=== PATIENT | female | born 1995 | race Caucasian/White ===

== ENCOUNTER 2024-06-09 14:23 | Outpatient (AMB) | payer BC, MEDICAID, SELFPAY ==
[2024-06-09 14:35] VITALS: BP 141/58; PULSE 79; RESP 18; TEMP 36.3; O2SAT 98; BMI 25.7
--- NOTE | 2024-06-09 14:35 | PD.GSCLVISIT ---
Vital Signs - [facility] 06/09/24 14:35 Height 1.68 m Height Method Stated Weight 72.376 kg Weight Measurement Method Standing Scale BMI 25.7 BP 141/58 H Blood Pressure Source Automatic Cuff Blood Pressure Location Left Upper Arm Position Sitting Respiration 18 Pulse 79 Pulse Source Monitor Temp 97.3 F Temp Source Temporal Artery Scan Pulse Oximetry (%) 98 Oxygen Delivery Method Room Air Med/Allergies Allergies & Medications Allergies pumpkin Allergy (Unknown, Verified 06/09/24 14:36) Swelling Medication Reconciliation vits no.124-ferrous fum 27 mg iron-folic acid 800 mcg tablet ( Vitamin) 1 tab PO QDAY 06/15/19 [History Confirmed 06/09/24] ibuprofen 800 mg tablet 800 mg PO TID PRN pain #30 tabs 07/01/19 [Rx Confirmed 06/09/24] labetalol 200 mg tablet 200 mg PO TID #90 tabs 07/01/19 [Rx Confirmed 06/09/24] calcium carbonate 500 mg PO BID #60 tabs 07/05/19 [Rx Confirmed 06/09/24] hydralazine 25 mg tablet 25 mg PO TID #20 tabs 07/05/19 [Rx Confirmed 06/09/24] prednisone 10 mg tablet 10 mg PO TID #21 tabs 07/05/19 [Rx Confirmed 06/09/24] MA Intake Visit Data Collection New Patient or Established: New Patient (never been to [facility]) Seen by Clinical Staff ONLY (RN/MA): No Reason for Visit:: REFERRAL HEMORRHOIDS Pain Present Currently: No Television Repairman Required: No PCP or OBGYN visit in last 3 months: Yes Hx Now: No Do You Feel Safe at Home: Yes Authorities Contacted: N/A Smoking Status Smoking Status: Never smoker Immunization / Flu Flu Vaccine in the Last 12 Months: No Flu Vaccine Exclusion Criteria: No Exclusion Criteria Past Medical History Past Medical History NEUROLOGIC: Negative Neurological Disorders, Alzheimer's Disease or Amyotrophic Lateral Sclerosis (ALS/Zayra Gehrig's) CARDIAC: Positive Hypertension; Negative Cardiac Disorders, Myocardial Infarction, Cardiac Arrhythmia, Atrial Fibrillation, Angina, Heart Murmur, Coronary Artery Disease, Atherosclerotic Heart Disease, Peripheral Vascular Disease, Hypercholesterolemia, Aneurysm, Congestive Heart Failure, Congenital Heart Disease, Valvular Heart Disease, Rheumatic Fever, Cardiomyopathy, Edema, Pericarditis, Cellulitis, Deep Vein Thrombosis, Hypotension or Varicose Veins RESPIRATORY: Negative Chronic Obstructive Pulmonary Disease (COPD), Asthma, Bronchitis, Emphysema, Pneumonia, Pulmonary Fibrosis, Tuberculosis, Pulmonary Embolism, Pulmonary Edema or Sleep Apnea GASTROINTESTINAL: Positive Hemorrhoids; Negative Gastrointestinal Disorders, Hepatitis, Cirrhosis, Pancreatitis, Celiac Disease, Gall Bladder Disease, Gastrointestinal Bleed, Esophageal Varices, Laureano's Esophagus, Colitis, Ulcerative Colitis, Diverticulitis, Diverticulosis, Ulcer, Colorectal Cancer, Irritable Bowel, Crohn's Disease, Obstructive Bowel, Hiatal Hernia, Gastroesophageal Reflux Disease or Obesity GENITOURINARY: Negative Genitourinary Disorders, Renal Disease, Kidney Stones, Polycystic Kidney Disease, Neurogenic Bladder, Inguinal Hernia, Dialysis, Prostate Cancer or Benign Prostatic Hyperplasia REPRODUCTIVE: Positive Previous Pregnancies; Negative Breast Cancer or Testicular Cancer MUSCULOSKELETAL: Negative Muscular Dystrophy, Myasthenia Gravis, Marfan's Syndrome, Bone Cancer, Arthritis, Rheumatoid Arthritis, Osteoporosis, Degenerative Disk Disease, Gout, Scoliosis, Fibromyalgia, Fractures, Degenerative Joint Disease, Osteomyelitis or Poliovirus ENT: Negative Cataracts, Glaucoma, Blind, Retinal Detachment, Macular Degeneration, Ear Infection, Deafness or Eye Prosthesis ENDOCRINE: Negative Endocrine Disorders, Diabetes Mellitus Type 1, Diabetes Mellitus Type 2, Hypoglycemia, Corning's Syndrome, Mino's Disease, Hyperthyroidism, Hypothyroidism, Parathyroid Disease, Pituitary Disease, Systemic Lupus Erythematosus, Syndrome of Inappropriate Antidiuretic Hormone (SIADH), Adrenal Disease or Graves' Disease HEMATOLOGIC: Positive Anemia; Negative Blood Disorders, Leukemia, Hemophilia, Thalassemia, Sickle Cell Disease or Clotting Problems OTHER HISTORY: Positive Hospitalization; Negative Down Syndrome, Developmental Delay, Shingles, Falls, Blood Transfusions, Blood Transfusion Reaction, Anesthesia Reactions, Organ Transplant, Chemotherapy, Radiation Therapy, Hyperbaric Therapy, MRSA, VRSA, Vancomycin-Resistant Enterococci, Human Immunodeficiency Virus (HIV), Chicken Pox, Measles, Mumps, Rubella ([place] Measles), Pertussis, Clostridium Difficile, Cancer, Breast Cancer, Cervical Cancer, Colorectal Cancer, Lung Cancer, Ovarian Cancer, Prostate Cancer or Testicular Cancer Family History FAMILY HISTORY: Positive Family Cardiac Disorders and Family Cancer; Negative Family Psychiatric Problems, Family Respiratory Disorders, Family Gastrointestinal Problems, Family Surgery or Family Anesthesia Reaction Surgical History SURGICAL: Positive Tonsillectomy; Negative Pacemaker, Joint Replacement, Neurologic Surgery, Section or Organ Transplant Social History SMOKING STATUS: Smoking status: Never smoker SECOND HAND EXPOSURE: second hand exposure: No ALCOHOL: Alcohol Intake: Never ALCOHOL FREQUENCY: Alcohol Intake Frequency: holidays/special occasions only HOUSING: Housing: House LIVES WITH: Lives With: Children and Spouse HPI HPI Narrative 28F presenting with hemorrhoids. Pt reports she has had them for years but they have been larger and more painful in the last few months. She has used preparation H which provides minimal relief as well as wipes but has not tried sitz baths. Her BMs are soft and regular without any straining, usually 2x daily. She has ccasional bleeding with wiping but denies any abdominal pain, change in stool caliber, anorexia and unintentional weight loss, and has not had a colonoscopy PMH: HTN PSHx: Tonsillectomy Meds: No antiplt or anticoagulation Allergies: Prednisone Social hx: Nonsmoker Family hx: No known malignancy ROS Review of Systems Systems Reviewed: All systems reviewed, normal except as documented Objective/Exam General General Appearance: alert, cooperative and well groomed Resp Respiratory exam: Absent respiratory distress Rectal Rectal exam: Present other (right external hemorrhoid) Assessment & Plan Diagnosis / Problem List (1) Hemorrhoids: Status: Acute Assessment & Plan: 28F presenting with symptomatic hemorrhoids. As pt has healthy bowel habits and has attempted remedies in the past I explained surgery is reasonable; I explained the THD procedure including risks of bleeding, infection, severe pain, difficulty urinating and persistence/recurrence of hemorrhoids. 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 Tobacco History Smoking Status: Never smoker Second Hand Smoke Exposure: No Alcohol History Alcohol Intake: Never Alcohol Intake Frequency: holidays/special occasions only Domestic Abuse History Do You Feel Safe at Home: Yes Review of Systems Report any current symptoms Only answer those that you have currently: Past Medical History Past Medical History Have you ever been diagnosed with any of the following: Neurological Problems Alzheimer's Disease: No Amyotrophic Lateral Sclerosis (ALS/Zayra Gehrig's): No Cardiology Problems Myocardial Infarction: No Cardiac Arrhythmia: No Atrial Fibrillation: No Angina: No Heart Murmur: No Coronary Artery Disease: No Atherosclerotic Heart Disease: No Peripheral Vascular Disease: No Hypercholesterolemia: No Aneurysm: No Congestive Heart Failure: No Congenital Heart Disease: No Valvular Heart Disease: No Rheumatic Fever: No Cardiomyopathy: No Edema: No Pericarditis: No Cellulitis: No Deep Vein Thrombosis: No Hypertension: Yes Hypotension: No Varicose Veins: No Respiratory Problems Chronic Obstructive Pulmonary Disease (COPD): No Asthma: No Bronchitis: No Emphysema: No Pneumonia: No Pulmonary Fibrosis: No Tuberculosis: No Pulmonary Embolism: No Pulmonary Edema: No Sleep Apnea: No Stomache/Intestinal Problems Hepatitis: No Cirrhosis: No Pancreatitis: No Celiac Disease: No Gall Bladder Disease: No Gastrointestinal Bleed: No Esophageal Varices: No Laureano's Esophagus: No Colitis: No Ulcerative Colitis: No Diverticulitis: No Diverticulosis: No Ulcer: No Colorectal Cancer: No Irritable Bowel: No Crohn's Disease: No Obstructive Bowel: No Hiatal Hernia: No Hemorrhoids: Yes Gastroesophageal Reflux Disease: No Obesity: No Genital/Urinary Problems Renal Disease: No Kidney Stones: No Polycystic Kidney Disease: No Neurogenic Bladder: No Inguinal Hernia: No Dialysis: No Prostate Cancer: No Benign Prostatic Hyperplasia: No Reproductive Problems Breast Cancer: No Previous Pregnancies: Yes Testicular Cancer: No Musculoskeletal Problems Muscular Dystrophy: No Myasthenia Gravis: No Marfan's Syndrome: No Bone Cancer: No Arthritis: No Rheumatoid Arthritis: No Osteoporosis: No Degenerative Disk Disease: No Gout: No Scoliosis: No Fibromyalgia: No Fractures: No Degenerative Joint Disease: No Osteomyelitis: No Poliovirus: No Head,Eye,Nose,Throat Problems Cataracts: No Glaucoma: No Blind: No Retinal Detachment: No Macular Degeneration: No Chronic Ear Infections: No Deafness: No Eye Prosthesis: No Endocrine Problems Diabetes Mellitus Type 1: No Diabetes Mellitus Type 2: No Hypoglycemia: No Corning's Syndrome: No Mino's Disease: No Hyperthyroidism: No Hypothyroidism: No Parathyroid Disease: No Pituitary Disease: No Systemic Lupus Erythematosus: No Syndrome of Inappropriate Antidiuretic Hormone: No Adrenal Disease: No Graves' Disease: No Blood Problems Anemia: Yes Leukemia: No Hemophilia: No Thalassemia: No Sickle Cell Disease: No Clotting Problems: No Other Problems Hospitalization: Yes Down Syndrome: No Developmental Delay: No Shingles: No Falls: No Blood Transfusions: No Blood Transfusion Reaction: No Anesthesia Reactions: No Organ Transplant: No Chemotherapy: No Radiation Therapy: No Hyperbaric Therapy: No MRSA: No VRSA: No Vancomycin-Resistant Enterococci: No Human Immunodeficiency Virus (HIV): No Chicken Pox: No Measles: No Mumps: No Rubella ([place] Measles): No Pertussis: No Clostridium Difficile: No Cancer: No Cervical Cancer: No Lung Cancer: No Ovarian Cancer: No Surgical History Pacemaker: No
== END 2024-06-09 15:04 | disposition home or self-care (01) ==
PROVIDERS: Supervising Provider Surgery; Visit Provider Surgery
DX: K64.9 Unspecified hemorrhoids (principal)
CPT/HCPCS: 99203; G0463